=== PATIENT | female | born 1970 | race Caucasian/White ===

== ENCOUNTER 2020-07-01 08:48 | Day surgery (SDC) | payer BC ==
[~2020-07-01] VITALS: Ht 149.9 cm; Wt 60.9 kg
[2020-07-01 09:17] LABS: HEMATOCRIT 39.1 % (36.0-48.0); MCH 29.5 pg (26.0-34.0); MCHC 33.2 g/dL (31.0-37.0); MCV 88.7 fL (80.0-100.0); MEAN PLATELET VOLUME 9.1 fL (7.4-10.4); RBC 4.41 10x6/uL (4.00-5.40); RDW 12.7 % (11.5-14.5); WBC 4.4 10x3/uL (4.8-10.8)
[2020-07-01 09:18] LABS: CALC OSMOLALITY 278 mosm/kg (275-300); CARBON DIOXIDE 30.4 mmol/L (21.0-32.0); CHLORIDE - SERUM 105 mmol/L (98-107); CREATININE - SERUM 0.8 mg/dL (0.6-1.3); GLUCOSE 88 mg/dL (74-106); SODIUM 141 mmol/L (136-145); UREA NITROGEN 9 mg/dL (7-18); eGFR NON AFRICAN AMERICAN 80 mL/min (90-120)
[2020-07-01] MEDS ORDERED: AMITIZA8 MCG PO (09:55)
[2020-07-01] MEDS ORDERED: ZOLOFT50 MG PO (09:56)
[2020-07-01] MEDS ORDERED: [UNRECOGNIZED DRUG - OTHER] (09:58)
[2020-07-01 10:08] VITALS: BP 117/76; Ht 149.9 cm; Wt 60.9 kg
--- NOTE | 2020-07-01 13:02 | NUR ---
DC INSTRUCTIONS GIVEN TO PT/FAMILY. STATE UNDERSTANDING. DC'D IV CATH FULLY INTACT. WILL DC SHORTLY.
--- NOTE | 2020-07-01 13:19 | NUR ---
PT LEFT UNIT VIA WC AT 1308
--- NOTE | 2020-07-02 15:15 | OP ---
PATIENT NAME: HAILEE HENRIQUEZ MEDICAL RECORD: [id number] :68 LOCATION:[facility] ADMISSION DATE: SURGEON: NEIL EVERETT MD DATE OF OPERATION: 07/01/2020 PROCEDURE: Colonoscopy. PREOPERATIVE DIAGNOSIS: Screening. MEDICATION: Propofol per anesthesia. Colonoscopy was performed. The colonoscope was inserted through the rectum and advanced to the cecum, identified by the ileocecal valve and the appendiceal orifice. The quality of the prep was good to fair. There were a few small sigmoid diverticula and some tortuosity in the colon. The remainder of the exam was normal. The patient tolerated the procedure well. FINAL DIAGNOSES: Good to fair prep. Few small sigmoid diverticula and tortuous colon. PLAN: Advance diet. Return to GI office. Recommend fiber supplements. Repeat colonoscopy in 3-5 years given good to fair prep. TRANSINT:[id number] Voice Confirmation ID: [id number] DOCUMENT ID: [id number] NEIL EVERETT MD at 1515 CC: [id number] DICTATION DATE: 07/01/20 1223 [facility]: 07/01/20 2139 [facility] 07/01/20 [address] [id number] [place] [id number]
== END 2020-07-01 13:08 | disposition home or self-care (01) ==
LOC: D.OPS 08:48
PROVIDERS: Anesthesiology; ATTEND Internal Medicine Gastroenterology
DX: Z12.11 Encounter for screening for malignant neoplasm of colon (principal); K57.30 Diverticulosis of large intestine without perforation or abscess without bleeding; K58.1 Irritable bowel syndrome with constipation